=== PATIENT | female | born 1975 | race Caucasian/White ===

== ENCOUNTER 2017-04-01 23:27 | Emergency (ER) | payer MEDICAID ==
[2017-04-01] MEDS ORDERED: Diazepam TAB(*) 5 MG PO ONE (23:48)
[2017-04-01] MEDS ORDERED: Dexamethasone TAB* 4 MG PO ONE (23:49)
[2017-04-01] MEDS ORDERED: oxyCODONE/Acetamin 5/325 MG* TAB PO ONE (23:49)
[2017-04-01] MEDS ORDERED: Ketorolac INJ* 60 MG/2 ML VIAL IM ONE (23:49)
--- NOTE | 2017-04-02 00:48 | ED ---
Back Pain - HPI Summary HPI Summary: 41F presents with lower back pain. She has history of chronic back pain from DJD. She states she was lifting something today and felt a pull in her back and felt that her back moved. She states her pain is extreme and she took one ibuprofen. She is doing to see a pain management doctor next month for her back pain. She has numbness on right leg that is chronic. She denies any loss of bowel or bladder. She denies any trauma. She denies any saddle anaesthesia. She denies any pain down her legs. - History of Current Complaint Chief Complaint: EDBackInjuryPain Stated Complaint: BACK PAIN Time Seen by Provider: 04/01/17 23:39 Pain Intensity: 9 - Allergies/Home Medications Allergies/Adverse Reactions: Allergies Allergy/AdvReac Type Severity Reaction Status Date / Time No Known Allergies Allergy Verified 04/01/17 23:56 PMH/Surg Hx/FS Hx/Imm Hx Endocrine/Hematology History: Denies: Hx Anticoagulant Therapy Cardiovascular History: Reports: Hx Hypertension Infectious Disease History: No Infectious Disease History: Denies: Traveled Outside the [place] in Last 30 Days - Family History Known Family History: Positive: Hypertension - Social History Alcohol Use: Occasionally Substance Use Type: Reports: None Smoking Status (MU): Light Every Day Tobacco Smoker Review of Systems Negative: Fever Negative: Chest Pain Negative: Shortness Of Breath Positive: Myalgia - back pain All Other Systems Reviewed And Are Negative: Yes Physical Exam Triage Information Reviewed: Yes Vital Signs On Initial Exam: Initial Vitals Temp Pulse Resp BP Pulse Ox 98 F 73 16 173/92 98 04/01/17 23:34 04/01/17 23:34 04/01/17 23:34 04/01/17 23:34 04/01/17 23:34 Vital Signs Reviewed: Yes Appearance: Positive: Pain Distress Skin: Positive: Warm, Dry Head/Face: Positive: Normal Head/Face Inspection Eyes: Positive: Normal, Conjunctiva Clear Respiratory/Lung Sounds: Positive: Clear to Auscultation, Breath Sounds Present Cardiovascular: Positive: Normal, RRR Musculoskeletal: Positive: Limited @ - back, Other - tenderness across lower back, pos SLR right, good pulses Neurological: Positive: Sensory/Motor Intact Psychiatric: Positive: Normal Diagnostics - Vital Signs Vital Signs Temp Pulse Resp BP Pulse Ox 04/02/17 00:01 98 F 73 16 173/92 98 04/01/17 23:59 16 04/01/17 23:34 98 F 73 16 173/ 98 - Laboratory Lab Statement: Any lab studies that have been ordered have been reviewed, and results considered in the medical decision making process. - CT lumbar CT Interpretation: Positive (See Comments) - small disc bulge at L4-L5 and L5-S1 CT Interpretation Completed By: Radiologist Back Pain Course/Dx - Course Course Of Treatment: 41F presents with lower back pain. She has history of chronic back pain from DJD. She states she was lifting something today and felt a pull in her back and felt that her back moved. She states her pain is extreme and she took one ibuprofen. She is doing to see a pain management doctor next month for her back pain. She has numbness on right leg that is chronic. She denies any loss of bowel or bladder. She denies any trauma. She denies any saddle anaesthesia. She denies any pain down her legs. on exam pos SLR right, tenderness across back. discussed with patient and wants imaging. decided on doing CT. gave valium, toradol, steriod and perocet for pain and experienced some pain relief. will continue steriod and muscle relaxer and told to follow up with primary. patient understands and agrees with plan. - Diagnoses Differential Diagnosis/HQI/PQRI: Positive: Herniated Disc, Strain, Sprain Provider Diagnoses: Back pain Discharge - Discharge Plan Condition: Good Disposition: HOME Prescriptions: Cyclobenzaprine TAB* [Flexeril 10 MG TAB*] 10 mg PO TID PRN #9 tab PRN Reason: Pain Methylprednisolone [Medrol Dosepak 4 MG*] 4 mg PO .SEE DEBORA INSTRUCTION #1 packet Patient Education Materials: Back Pain (ED) Referrals: Non Staff,Doctor [Primary Care Provider] - Additional Instructions: Follow directions on package for Medrol pack Take muscle relaxers three times a day for 3 days Use ibuprofen or Tylenol for pain every 6 hours ice/heat area, move as much as possible Follow up with primary within 5 days Return to ED if develop any new or worsening symptoms
[2017-04-02 01:07] VITALS: BP 136/98
--- NOTE | 2017-04-02 07:41 | RAD ---
INDICATION: Low back pain status post lifting injury. COMPARISON: There are no prior studies available for comparison. TECHNIQUE: Contiguous axial sections were obtained beginning above the L1 vertebra and continuing through the L5-S1 disc space. Images were reconstructed in the sagittal and coronal planes. FINDINGS: There is a mild lumbar scoliosis convex toward the left side. The vertebra are otherwise in normal alignment. No fracture is seen. At the L4-L5 level there is a mild broad-based disc bulge. No significant spinal canal narrowing is present. There is mild bilateral neural foraminal narrowing. At the L5-S1 level there is a mild broad-based disc bulge. No significant spinal canal narrowing is present. Neural foramen appear patent on both sides. The remaining intervertebral discs appear to be within normal limits. IMPRESSION: MILD DEGENERATIVE DISC DISEASE AT THE L4-L5 AND L5-S1 LEVELS.
== END 2017-04-02 01:08 | disposition home or self-care (01) ==
LOC: MERGE 23:27 → ED 23:27
DX: M54.5 Low back pain (principal); I10 Essential (primary) hypertension; Z72.0 Tobacco use
CPT/HCPCS: 72131; 96372; 99282; A9270-GY; J1885

== ENCOUNTER 2017-04-12 00:39 | Emergency (ER) | payer MEDICAID ==
[2017-04-12] MEDS ORDERED: NS 0.9% 1000 ML* 1,000 ML IV ONE (01:15)
[2017-04-12] MEDS ORDERED: Ondansetron INJ* 2 MG/ML VIAL IV ONE (01:24)
[2017-04-12] MEDS ORDERED: Morphine INJ* 4 MG/ML 1 ML SYRINGE IV ONE ×2 (01:24→03:25)
[2017-04-12 02:24] LABS: Hematocrit 47 % (35-47); Hemoglobin 15.9 g/dl (12.0-16.0); Mean Corpuscular HGB Conc 34 g/dl (31-36); Mean Corpuscular Hemoglobin 33 pg (27-31); Mean Corpuscular Volume 96 fL (80-97); Mean Platelet Volume 9 um3 (7.4-10.4); Red Blood Count 4.87 10^6/ul (4.0-5.4); Red Cell Distribution Width 14 % (10.5-15); White Blood Count 9.4 10^3/ul (3.5-10.8)
[2017-04-12 02:25] LABS: Add Diff/Slide Review? Slide Review Added; Comments Flag Yes
[2017-04-12 02:32] LABS: Albumin 4.2 g/dL (3.2-5.2); C Reactive Protein 3.23 mg/L (< 5.00); Calcium 9.3 mg/dL (8.6-10.3); EGFR African American 136.4 (>60); EGFR Non-African American 106.1 (>60); Globulin 2.8 g/dL (2-4); Potassium 3.9 mmol/L (3.5-5.0); Total Bilirubin 0.9 mg/dL (0.2-1.0)
[2017-04-12] MEDS ORDERED: Iohexol 300* (CONTRAST) 10 ML SDV IV ONE (02:37)
[2017-04-12 03:29] LABS: Urine Bacteria 1+ (Absent); Urine Bilirubin Negative (Negative); Urine Glucose Negative (Negative); Urine Nitrite Negative (Negative)
--- NOTE | 2017-04-12 04:46 | ED ---
I, Oh,Soniyah, scribed for Erick Manzano MD on 04/12/17 at 0124 . Abdominal Pain/Female - HPI Summary HPI Summary: This 41 y/o female presents to ED for gradually worsening right sided abd pain since yesterday. Pain radiate to right lower back. Pain is worse since Pt consumed ham and mac and cheese for dinner last evening. Positive n/v after consumption. She decided to visit ED when she had trouble falling asleep due to pain. PMHx includes cholecystectomy. Appendix is still intact. Plan of care involving CT imaging studies is discussed, and pt is agreeable. - History of Current Complaint Chief Complaint: EDAbdPain Stated Complaint: ABD PAIN Time Seen by Provider: 04/12/17 01:18 Hx Obtained From: Patient, Medical Records Onset/Duration: Still Present Timing: Constant Pain Intensity: 9 Pain Scale Used: 0-10 Numeric Location: Discrete At: RUQ, Discrete At: RLQ Radiates: Yes Radiates to: Back - right lower back Character: Dull Aggravating Factor(s): Nothing Alleviating Factor(s): Nothing Associated Signs and Symptoms: Positive: Nausea, Vomiting. Negative: Fever Allergies/Adverse Reactions: Allergies Allergy/AdvReac Type Severity Reaction Status Date / Time No Known Allergies Allergy Verified 04/01/17 23:56 PMH/Surg Hx/FS Hx/Imm Hx Endocrine/Hematology History: Denies: Hx Anticoagulant Therapy Cardiovascular History: Reports: Hx Hypertension Infectious Disease History: No Infectious Disease History: Denies: Traveled Outside the [place] in Last 30 Days - Family History Known Family History: Positive: Hypertension - Social History Alcohol Use: Occasionally Hx Substance Use: No Substance Use Type: Reports: None Hx Tobacco Use: Yes Smoking Status (MU): Light Every Day Tobacco Smoker Review of Systems Negative: Fever Positive: Abdominal Pain, Vomiting, Nausea All Other Systems Reviewed And Are Negative: Yes Physical Exam Triage Information Reviewed: Yes Vital Signs On Initial Exam: Initial Vitals Temp Pulse Resp BP Pulse Ox 98.8 F 79 16 143/96 98 04/12/17 00:43 04/12/17 00:43 04/12/17 00:43 04/12/17 00:43 04/12/17 00:43 Vital Signs Reviewed: Yes Appearance: Positive: Well-Appearing, Pain Distress - mild discomfort Skin: Positive: Warm Head/Face: Positive: Normal Head/Face Inspection Eyes: Positive: LAURA ENT: Positive: Hearing grossly normal Neck: Positive: Supple Respiratory/Lung Sounds: Positive: Clear to Auscultation, Breath Sounds Present Cardiovascular: Positive: RRR Abdomen Description: Positive: Soft, Other: - miold rlq tenderness. Negative: Distended, Guarding Bowel Sounds: Positive: Present Musculoskeletal: Positive: Strength/ROM Intact Neurological: Positive: Alert, Oriented to Person Place, Time Diagnostics - Vital Signs Vital Signs Temp Pulse Resp BP Pulse Ox 04/12/17 00:43 98.8 F 79 16 143/96 98 - Laboratory Lab Results: Lab Results 04/12/17 04/12/17 04/12/17 Range/Units 02:06 02:06 02:06 WBC 9.4 (3.5-10.8) 10^3/ul RBC 4.87 (4.0-5.4) 10^6/ul Hgb 15.9 (12.0-16.0) g/dl Hct 47 (35-47) % MCV 96 (80-97) fL MCH 33 H (27-31) pg MCHC 34 (31-36) g/dl RDW 14 (10.5-15) % Plt Count 256 (150-450) 10^3/ul MPV 9 (7.4-10.4) um3 Neut % (Auto) 68.9 (38-83) % Lymph % (Auto) 17.7 L (25-47) % [place] % (Auto) 6.2 (1-9) % Eos % (Auto) 1.5 (0-6) % Baso % (Auto) 5.7 H (0-2) % Absolute Neuts (auto) 6.5 (1.5-7.7) 10^3/ul Absolute Lymphs (auto) 1.7 (1.0-4.8) 10^3/ul Absolute Monos (auto) 0.6 (0-0.8) 10^3/ul Absolute Eos (auto) 0.1 (0-0.6) 10^3/ul Absolute Basos (auto) 0.5 H (0-0.2) 10^3/ul Absolute Nucleated RBC 0.01 10^3/ul Nucleated RBC % 0.1 Sodium 137 (133-145) mmol/L Potassium 3.9 (3.5-5.0) mmol/L Chloride 103 (101-111) mmol/L Carbon Dioxide 27 (22-32) mmol/L Anion Gap 7 (2-11) mmol/L BUN 13 (6-24) mg/dL Creatinine 0.62 (0.51-0.95) mg/dL Est GFR ( Amer) 136.4 (>60) Est GFR (Non-Af Amer) 106.1 (>60) BUN/Creatinine Ratio 21.0 H (8-20) Glucose 91 (70-100) mg/dL Lactic Acid 0.8 (0.5-2.0) mmol/L Calcium 9.3 (8.6-10.3) mg/dL Total Bilirubin 0.90 (0.2-1.0) mg/dL AST 19 (13-39) U/L ALT 23 (7-52) U/L Alkaline Phosphatase 33 L (34-104) U/L C-Reactive Protein 3.23 (< 5.00) mg/L Total Protein 7.0 (6.4-8.9) g/dL Albumin 4.2 (3.2-5.2) g/dL Globulin 2.8 (2-4) g/dL Albumin/Globulin Ratio 1.5 (1-3) Lipase 30 (11.0-82.0) U/L Beta HCG, Quant 0.74 mIU/mL Urine Color Urine Appearance Urine pH (5-9) Ur Specific [place] (1.010-1.030) Urine Protein (Negative) Urine Ketones (Negative) Urine Blood (Negative) Urine Nitrate (Negative) Urine Bilirubin (Negative) Urine Urobilinogen (Negative) Ur Leukocyte Esterase (Negative) Urine WBC (Auto) (Absent) Urine RBC (Auto) (Absent) Ur Squamous Epith Cells (Absent) Calcium Oxalate Crystal (Absent) Urine Bacteria (Absent) Urine Glucose (Negative) 04/12/17 Range/Units 03:08 WBC (3.5-10.8) 10^3/ul RBC (4.0-5.4) 10^6/ul Hgb (12.0-16.0) g/dl Hct (35-47) % MCV (80-97) fL MCH (27-31) pg MCHC (31-36) g/dl RDW (10.5-15) % Plt Count (150-450) 10^3/ul MPV (7.4-10.4) um3 Neut % (Auto) (38-83) % Lymph % (Auto) (25-47) % [place] % (Auto) (1-9) % Eos % (Auto) (0-6) % Baso % (Auto) (0-2) % Absolute Neuts (auto) (1.5-7.7) 10^3/ul Absolute Lymphs (auto) (1.0-4.8) 10^3/ul Absolute Monos (auto) (0-0.8) 10^3/ul Absolute Eos (auto) (0-0.6) 10^3/ul Absolute Basos (auto) (0-0.2) 10^3/ul Absolute Nucleated RBC 10^3/ul Nucleated RBC % Sodium (133-145) mmol/L Potassium (3.5-5.0) mmol/L Chloride (101-111) mmol/L Carbon Dioxide (22-32) mmol/L Anion Gap (2-11) mmol/L BUN (6-24) mg/dL Creatinine (0.51-0.95) mg/dL Est GFR ( Amer) (>60) Est GFR (Non-Af Amer) (>60) BUN/Creatinine Ratio (8-20) Glucose (70-100) mg/dL Lactic Acid (0.5-2.0) mmol/L Calcium (8.6-10.3) mg/dL Total Bilirubin (0.2-1.0) mg/dL AST (13-39) U/L ALT (7-52) U/L Alkaline Phosphatase (34-104) U/L C-Reactive Protein (< 5.00) mg/L Total Protein (6.4-8.9) g/dL Albumin (3.2-5.2) g/dL Globulin (2-4) g/dL Albumin/Globulin Ratio (1-3) Lipase (11.0-82.0) U/L Beta HCG, Quant mIU/mL Urine Color Yellow Urine Appearance Cloudy Urine pH 5.0 (5-9) Ur Specific [place] 1.024 (1.010-1.030) Urine Protein Negative (Negative) Urine Ketones Negative (Negative) Urine Blood 1+ H (Negative) Urine Nitrate Negative (Negative) Urine Bilirubin Negative (Negative) Urine Urobilinogen Negative (Negative) Ur Leukocyte Esterase Trace H (Negative) Urine WBC (Auto) 1+(6-10/hpf) H (Absent) Urine RBC (Auto) 2+(6-10/hpf) H (Absent) Ur Squamous Epith Cells Present H (Absent) Calcium Oxalate Crystal Present H (Absent) Urine Bacteria 1+ H (Absent) Urine Glucose Negative (Negative) Result Diagrams: 04/12/17 02:06 04/12/17 02:06 Lab Statement: Any lab studies that have been ordered have been reviewed, and results considered in the medical decision making process. - CT Ab/P CT Interpretation: Positive (See Comments) - Mildly fatty liver. 2.6 cm right ovarian cyst without free fluid. 10 mm left adrenal nodule may be followed up with MRI. CT Interpretation Completed By: Radiologist Re-Evaluation - Re-Evaluation First Eval Change: Improved - pt pain free, results d/w pt Abdominal Pain Fem Course/Dx - Diagnoses Provider Diagnoses: Ovarian cyst, Abdominal pain Discharge - Discharge Plan Condition: Improved Disposition: HOME Patient Education Materials: Ovarian Cyst (ED), Abdominal Pain (ED) Referrals: [facility] [Outside] - 2 Days The documentation as recorded by the Estuarod jacome Soohyun accurately reflects the service I personally performed and the decisions made by , Erick Manzano MD.
[2017-04-12 05:44] VITALS: BP 108/52
--- NOTE | 2017-04-12 07:43 | RAD ---
CLINICAL HISTORY: Right lower quadrant pain. Relevant surgical history includes cholecystectomy. COMPARISON: None TECHNIQUE: Contrast enhanced CT examination of the abdomen and pelvis from the lung bases through the initial tuberosities. The patient received 119 mL Omnipaque 300 intravenously prior to imaging.The patient received oral contrast as well prior to imaging. FINDINGS: VISUALIZED LUNG BASES: The visualized lung bases are grossly clear. There is no pleural effusion. ABDOMEN AND PELVIS: The liver is homogenously hypodense relative to the spleen without focal suspicious mass or surface irregularity. The spleen, pancreas and left adrenal gland are grossly normal in appearance. At the right adrenal gland there is a 1.7 x 0.9 cm soft tissue density nodule right disease image 44). The gallbladder is surgically absent. The kidneys are normal in appearance without focal mass, calcification or signs of hydronephrosis. The oral contrast has progressed as far as the base of the cecum. The small and large bowel are not distended. The patient's normal appendix is identified in the right lower quadrant measuring just under 5 mm in diameter (image 127). There is no gross retroperitoneal or mesenteric lymphadenopathy. The pelvic viscera is normal in appearance. At the right adnexa there is a 2.9 cm fluid density structure most consistent with a follicle and a woman of this age. The abdominal aorta and iliac arteries are normal in course and diameter. There are no sinister bone lesions. IMPRESSION: 1. No acute inflammatory changes or signs of obstruction of the gastrointestinal tract. 2. At the right adnexa there is a 2.9 cm fluid density structure most consistent with a follicle in a woman of this age. 3. Left adrenal soft tissue nodule measuring 9 x 17 mm. This is incompletely characterized on this CT examination and can be further characterized either with contrast-enhanced MRI of the abdomen were four-phase CT of the abdomen according to the adrenal gland protocol. 4. Hepatic steatosis.
== END 2017-04-12 05:52 | disposition home or self-care (01) ==
LOC: ED 00:39
DX: N83.201 Unspecified ovarian cyst, right side (principal); R10.9 Unspecified abdominal pain; R11.2 Nausea with vomiting, unspecified; F17.210 Nicotine dependence, cigarettes, uncomplicated
CPT/HCPCS: 36415; 74177; 80053; 81003; 81015; 83605; 83690; 84702; 85025; 86140; 87077; 87086; 87186; 96374; 96375; 99284; J2270; J2405; Q9967

== ENCOUNTER 2017-05-16 19:53 | Observation (INO) | payer MEDICAID ==
[2017-05-16] MEDS ORDERED: Aspirin Low Dose CHEW TAB* 81 MG PO ONE (23:23)
[2017-05-16] MEDS ORDERED: Nitroglycerin 2% OINT* 1 GM PAK TOPICAL ONE (23:24)
[2017-05-16 23:59] LABS: Hematocrit 49 % (35-47); Hemoglobin 16.8 g/dl (12.0-16.0); Mean Corpuscular HGB Conc 34 g/dl (31-36); Mean Corpuscular Hemoglobin 32 pg (27-31); Mean Corpuscular Volume 94 fL (80-97); Mean Platelet Volume 9 um3 (7.4-10.4); Red Blood Count 5.22 10^6/ul (4.0-5.4); Red Cell Distribution Width 14 % (10.5-15); White Blood Count 9.8 10^3/ul (3.5-10.8)
[2017-05-17 00:12] LABS: Albumin 4.4 g/dL (3.2-5.2); BUN/Creatinine Ratio 17.5 (8-20); Calcium 9.3 mg/dL (8.6-10.3); EGFR African American 133.3 (>60); EGFR Non-African American 103.6 (>60); Potassium 3.7 mmol/L (3.5-5.0); Total Bilirubin 1.1 mg/dL (0.2-1.0); Total Protein 7.4 g/dL (6.4-8.9)
[2017-05-17] MEDS ORDERED: Acetaminophen TAB* 325 MG PO ONE (02:00)
[2017-05-17] MEDS ORDERED: Albuterol 2.5 MG/3 ML NEB.SOL* (0.083%) INH PRN (04:28)
[2017-05-17] MEDS ORDERED: Nicotine Inhaler* 10 MG AMP INH PRN (04:36)
--- NOTE | 2017-05-17 04:38 | ED ---
Dm Young Rebecca, scribed for Bebeto Wilduel on 05/16/17 at 2313 . HPI Chest Pain - HPI Summary HPI Summary: Pt is a 42 y/o F who presents to ED c/o left anterior CP. Pain began yesterday and has been constant since onset, waxing and waning in intensity and worsening today. Pain is currently moderate, ranked 7/10 and is aggravated by deep breaths , movement and palpation, alleviated by nothing. Unchanged by Ibuprofen and Naproxen. Additionally c/o slight dizziness and nonproductive cough. Denies N/V , edema and abdominal pain. Is not on oral contraceptives. SHx current smoker. FHx CAD (both parents). Last stress test was many years ago. - History of Current Complaint Chief Complaint: EDChestPainROMI Time Seen by Provider: 05/16/17 22:52 Hx Obtained From: Patient Onset/Duration: Started Days Ago - Yesterday, Still Present, Worse Since - Today Current Severity: Moderate Pain Intensity: 7 Pain Scale Used: 0-10 Numeric Chest Pain Location: Left Anterior Aggravating Factor(s): Movement, Deep Breaths, Other: - Palpation Alleviating Factor(s): Nothing Associated Signs and Symptoms: Positive: Dizziness - slight, Nonproductive Cough. Negative: Nausea, Abdominal Pain, Vomiting, Edema - Allergy/Home Medications Allergies/Adverse Reactions: Allergies Allergy/AdvReac Type Severity Reaction Status Date / Time No Known Allergies Allergy Verified 04/01/17 23:56 PMH/Surg Hx/FS Hx/Imm Hx Endocrine/Hematology History: Denies: Hx Anticoagulant Therapy, Hx Diabetes Cardiovascular History: Reports: Hx Hypertension History: Denies: Hx Renal Disease - Surgical History Surgery Procedure, Year, and Place: CHOLECYSTECTOMY 2014 Infectious Disease History: No Infectious Disease History: Denies: Traveled Outside the [place] in Last 30 Days - Family History Known Family History: Positive: Hypertension - Social History Alcohol Use: None Hx Substance Use: No Substance Use Type: Reports: None Hx Tobacco Use: Yes Smoking Status (MU): Light Every Day Tobacco Smoker Review of Systems Positive: Chest Pain Positive: Cough - nonproductive Negative: Abdominal Pain, Vomiting, Nausea Negative: Edema Neurological: Other - Dizziness All Other Systems Reviewed And Are Negative: Yes Physical Exam - Summary Physical Exam Summary: Appearance: Well appearing, no pain distress Skin: warm, dry, reflects adequate perfusion Head/face: normal Eyes: EOMI, LAURA ENT: normal Neck: supple, nontender Respiratory: CTA, breath sounds present Cardiovascular: RRR, pulses symmetrical, tenderness over the left chest Abdomen: nontender, soft Bowel: present Musculoskeletal: normal, strength/ROM intact Neuro: normal, sensory motor intact, A&Ox3 Triage Information Reviewed: Yes Vital Signs On Initial Exam: Initial Vitals Temp Pulse Resp BP Pulse Ox 98.3 F 82 20 141/94 99 05/16/17 19:55 05/16/17 19:55 05/16/17 19:55 05/16/17 19:55 05/16/17 19:55 Vital Signs Reviewed: Yes - [place] Coma Scale Coma Scale Total: 15 Diagnostics - Vital Signs Vital Signs Temp Pulse Resp BP Pulse Ox 05/16/17 22:30 62 21 127/81 97 05/16/17 22:00 70 13 98 05/16/17 21:53 99.1 F 69 14 152/99 98 05/16/17 21:39 95 96 05/16/17 21:38 152/99 05/16/17 21:15 98.6 F 78 20 148/89 98 05/16/17 19:55 98.3 F 82 20 141/94 99 - Laboratory Result Diagrams: 05/16/17 23:40 05/16/17 23:40 Lab Statement: Any lab studies that have been ordered have been reviewed, and results considered in the medical decision making process. - Radiology CXR Xray Interpretation: No Acute Changes Radiology Interpretation Completed By: ED Physician - EKG 2005 Cardiac Rate: NL - 75 bpm EKG Rhythm: Sinus Rhythm EKG Interpretation: No acute changes Chest Pain Course/Dx - Course Assessment/Plan: Pt is a 42 y/o F who presents to ED c/o left anterior CP. Pain began yesterday and has been constant since onset, waxing and waning in intensity and worsening today. Pain is currently moderate, ranked 7/10 and is aggravated by deep breaths, movement and palpation, alleviated by nothing. Unchanged by Ibuprofen and Naproxen. Additionally c/o slight dizziness and nonproductive cough. Denies N/V, edema and abdominal pain. Is not on oral contraceptives. SHx current smoker. FHx CAD (both parents). Last stress test was many years ago. CXR is negative, as read by ED physician. EKG is sinus rhythm with no acute changes. In the ED course, pt was given Tylenol, NTG and ASA. Blood workw as done. Both troponins are 0.00. Discussed care of pt with Dr. Pichardo who will evaluate the pt and upon evaluation has decided to admit the pt. She will be admitted with Dx of CP, r/o ACS. She understands and agrees. Elevated BP noted. - Diagnoses Provider Diagnoses: chest pain, rule out ACS - Provider Notifications Discussed Care Of Patient With: Alex Gamboa Time Discussed With Above Provider: 03:55 Instructed by Provider To: Other - Will evaluate the pt in the ED. Upon evaluation, Dr. Gamboa has decided to admit the pt. Discharge - Discharge Plan Condition: Stable Disposition: ADMITTED TO [facility] documentation as recorded by the Dm jacome Rebecca accurately reflects the service I personally performed and the decisions made by Junito stanley Emmanuel.
[2017-05-17] MEDS ORDERED: Heparin VIAL(*) 5000 UNITS/ML VIAL (FIVE THOUSAND) SUBCUT SCH (06:00)
--- NOTE | 2017-05-17 06:30 | HP ---
CC: Dr. Sánchez * ADMISSION HISTORY AND PHYSICAL: DATE OF ADMISSION: 05/17/17 PRIMARY CARE PROVIDER: Dr. Sánchez. HEALTH CARE PROXY: Her . CODE STATUS: Full. SOURCE OF INFORMATION: History obtained from interview of the patient. RELIABILITY: Good. CHIEF COMPLAINT: Chest pain. HISTORY OF PRESENT ILLNESS: This 42-year-old with past medical history of obesity, active tobacco abuse, hypertension per chart review though patient denies and early family history of heart disease. Had been in her usual state of health until a day prior to admission developed chest tightness that lasted about an hour, described as nonradiating in her chest with a "internal tenderness" associated with dizziness. On the day of admission, felt the pain was worse, described as more persistent, has been coming on and off lasting for minutes to hours. She could not state whether her pain was associated with exertion and no relieving factors. She tried to think about it. She notes her recent cough has also been intermittent, denies being associated with pain. The day of admission took an antacid thinking that the pain may be related to indigestion without relief and she also tried a Motrin without relief. She proceeded to emergency room where reportedly she received sublingual nitroglycerin with improvement in her pain. 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 At home she has not stairs and otherwise does not walk up and down stairs, not very active, mostly limited by her lifestyle but not arthralgias or other medical conditions. When seen by this author, the patient was chest pain free, interactive, sleepy at 4:30 in the morning in no distress. PAST MEDICAL HISTORY: Includes tobacco abuse, asthma, degenerative disk disease in her lower back, history of tubal ligation, right knee surgery, left elbow surgery, left eye surgery, and a cholecystectomy 2 years prior. MEDICATIONS: 1. Naproxen p.r.n. 2. Albuterol HFA p.r.n. ALLERGIES: No known drug allergies. FAMILY HISTORY: Mother from an VA at age 44, father had an VA at 57, maternal grandfather and maternal grandmother also had heart disease per report. SOCIAL HISTORY: Smokes half a pack a day for 25 years. No alcohol. 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 . REVIEW OF SYSTEMS: As per HPI, otherwise all other systems negative. PHYSICAL EXAMINATION GENERAL: Lying 20 degrees in bed, interactive, pleasant, in no apparent. distress. VITAL SIGNS: In the emergency room 133/90, respiratory rate is 13, heart rate 64, 99% on room air, and T-Max 99.1. HEENT: Oropharynx is clear, has moist mucous membranes. NECK: Mildly elevated JVD at 30 degrees. No cervical or supraclavicular lymphadenopathy. LUNGS: Clear to auscultation. HEART: She has regular, rate, and rhythm. No murmurs, rubs, or gallops. ABDOMEN: Soft, nontender, and nondistended. EXTREMITIES: Warm and well perfused without clubbing, cyanosis, or edema. She is alert and oriented x3; her Cranial nerves II through XII are intact. She has no apparent anxiety, agitation, or depression. PERTINENT LABS: Troponin I 0.00 on consecutive checks. BNP 189, white blood cell count 9.8. Hemoglobin 16.8. Data reviewed, EKG normal sinus rhythm, ventricular rate of 75, borderline left axis, normal R-wave progression and no ST or T-wave changes. Chest x-ray: No active cardiopulmonary disease. ASSESSMENT AND PLAN: This is a 42-year-old female presenting to the hospital with chest tightness over 2 days. Strong family history of coronary artery disease and risk factors including obesity and active tobacco abuse. Chest pain. Rule out acute coronary syndrome. Third troponin at 6 a.m. in the morning. Chest fasting lipids in the morning. No evidence of diabetes based on fasting glucose. Received aspirin in the emergency room. Continue aspirin 81 mg in the morning. I have ordered an exercise stress test and nuclear imaging tomorrow. The patient does not think she will limited in performing the exercise portion of the test. Asthma. Continue home albuterol. DVT prophylaxis, heparin subcu. [id number]/[facility] #: [id number] [facility]
--- NOTE | 2017-05-17 07:17 | RAD ---
INDICATION: Chest pain COMPARISON: None TECHNIQUE: An AP portable view obtained at 2330 hours is submitted. FINDINGS: Bones/Soft Tissues: There are no acute bony findings. Cardiomediastinal: The cardiomediastinal silhouette is normal. Lungs: There are no infiltrates. Pleura: There are no pleural effusions. Other: None IMPRESSION: NO ACTIVE DISEASE.
[2017-05-17 07:34] LABS: HDL Cholesterol 31.2 mg/dL
[2017-05-17] MEDS ORDERED: Aspirin EC Low Dose* 81 MG TAB.EC PO SCH (09:00)
[2017-05-17] MEDS ORDERED: Aminophylline IV* 25 MG/ML 10 ML VIAL ONE (11:37)
[2017-05-17] MEDS ORDERED: Regadenoson* 0.4 MG/5 ML SYRINGE ONE ×2 (11:37)
--- NOTE | 2017-05-17 13:32 | RAD ---
Edited for charges. Indication: Chest pain. Myocardial perfusion scan was performed utilizing 1 day protocol. Rest myocardial perfusion was performed after intravenous injection of 10.3 mCi of technetium 99 and tetrofosmin. Pharmacological stress was applied and stress myocardial perfusion was performed after intravenous injection of 25.9 mCi of technetium 99m tetrofosmin. There is homogeneous distribution throughout the left ventricle. There is focal area of photopenia which appears to reverse in the apex of the heart. This may represent a small reversible change. The ejection fraction is 61% at stress. Evaluation of wall motion demonstrates no focal wall motion abnormality. IMPRESSION: There is a small area of reversible change near the apex. Normal ejection fraction. ASSESSMENT: Low risk Based on imaging criteria from ACC/AHA 2002 Guideline Update for the Management of Patients With Chronic Stable Angina Table 23. Noninvasive Risk Stratification. MTDD
[2017-05-17] MEDS ORDERED: Omeprazole CAP* 20 MG PO ONE (13:46)
[2017-05-17 15:28] VITALS: BP 121/70
--- NOTE | 2017-05-18 05:24 | DS ---
CC: PCP, Dr. Sánchez * DISCHARGE SUMMARY DATE OF ADMISSION: 05/17/17 DATE OF DISCHARGE: 05/18/17 ADMITTING PHYSICIAN: Dr. Gamboa ATTENDING PHYSICAIN: Dr. Lopez CHIEF COMPLAINT: burning chest pain PRIMARY DIAGNOSIS: atypical chest pain; ACS ruled out; possible GERD HISTORY OF PRESENT ILLNESS AND HOSPITAL COURSE: Isabel Bradshaw is 42 year old female PMH asthma, DDD, tobacco abuse presented with two days of burning chest sensation underneath her left breast and nonexertional shortness of breath that was unrelieved with home NSAIDs. She presented to the emergency room and was admitted to observation unit status for ACS rule out. Troponin's were negative x3. The patient underwent attempted exercise stress test in morning but was unable to achieve target heart rate and was suffering from shortness of breath thought to be secondary to asthma. She then underwent a Lexiscan nuclear stress test but had adverse reaction with flushing, nausea, shortness of breath, anxiety. The stress test was read as low risk with a small area of reversible change near the apex. Patient was discharged home to follow up with primary care provider. She was also given prescription for Prilosec as trial for potential GERD. Of note, she attested to substantial difficulty sleeping on anything but 4 pillows, that she snore all night, and frequently "stops breathing" overnight. She was advised to follow up with a polymsomnographer/sleep study to test for obstructive sleep apnea. DISCHARGE MEDICATIONS: 1. Home Motrin. 2. Albuterol inhalers p.r.n. DISPOSITION: Home. DIET: Regular, unchanged. [id number]/[facility] #: [id number] [facility]
== END 2017-05-17 15:57 | disposition home or self-care (01) ==
LOC: ED 19:53 → MEDTELE 05-17 04:28
PROVIDERS: ADMIT Internal Medicine; ATTEND Internal Medicine
DX: R07.89 Other chest pain (principal); J45.909 Unspecified asthma, uncomplicated; M51.36 Other intervertebral disc degeneration, lumbar region; F17.210 Nicotine dependence, cigarettes, uncomplicated; I10 Essential (primary) hypertension; R42 Dizziness and giddiness; R06.02 Shortness of breath; R00.2 Palpitations; Z79.899 Other long term (current) drug therapy
CPT/HCPCS: 36415; 71010; 78452; 80053; 80061; 83880; 84484; 85025; 85379; 85610; 85730; 93005; 93017; 99285; A9270-GY; A9502; G0378; J0280; J1644; J2785

== ENCOUNTER 2017-06-10 13:41 | Emergency (ER) | payer SELFPAY ==
[2017-06-10 13:56] VITALS: BP 144/97
--- NOTE | 2017-06-10 14:40 | RAD ---
HISTORY: Right elbow pain COMPARISONS: None VIEWS: 2, Frontal and lateral views of the right elbow FINDINGS: BONE DENSITY: Normal. BONES: There is no displaced fracture. JOINTS: There is no arthropathy. There is no posterior supracondylar fat pad to suggest a joint effusion. ALIGNMENT: There is no dislocation. SOFT TISSUES: Unremarkable. OTHER FINDINGS: None. IMPRESSION: NO ACUTE OSSEOUS INJURY. IF SYMPTOMS PERSIST, RECOMMEND REPEAT IMAGING.
--- NOTE | 2017-06-27 19:09 | ED ---
Upper Extremity Pain - HPI Summary HPI Summary: Patient presents to the ED with CC right elbow pain after injuring it a few days ago. Denies bruising or other discoloration. Impact was minimal. Denies numbness or tingling into the hand. Denies temperature changes. She has never injured the arm before. Requesting note for work. - History of Current Complaint Chief Complaint: EDExtremityUpper Stated Complaint: RT ELBOW PAIN Time Seen by Provider: 06/10/17 14:07 Hx Obtained From: Patient Mechanism Of Injury: Blunt Trauma Onset/Duration: Started Days Ago Timing: Constant Severity Initially: Mild Severity Currently: Mild Pain Location: Elbow Character: Aching Aggravating Factor(s): Movement, Lifting, Flexion, Extension, Internal/External Rotation Alleviating Factor(s): Nothing Associated Signs & Symptoms: Negative: Swelling, Numbness/Tingling, Neck Pain, Nausea - Risk Factors Non-Orthopedic Risk Factor: Negative DVT Risk Factors: Negative Septic Arthritis Risk Factor: Negative Compartment Syndrome Risk Factors: Pain - Allergies/Home Medications Allergies/Adverse Reactions: Allergies Allergy/AdvReac Type Severity Reaction Status Date / Time No Known Allergies Allergy Verified 06/10/17 13:56 PMH/Surg Hx/FS Hx/Imm Hx Previously Healthy: Yes Endocrine/Hematology History: Denies: Hx Anticoagulant Therapy, Hx Diabetes Cardiovascular History: Reports: Hx Hypertension Respiratory History: Reports: Hx Asthma History: Denies: Hx Renal Disease Musculoskeletal History: Reports: Hx Back Problems - degenerative disc disease Denies: Hx Arthritis Sensory History: Reports: Hx Contacts or Glasses, Hx Vision Problem Denies: Hx Hearing Aid Opthamlomology History: Reports: Hx Contacts or Glasses, Hx Vision Problem - Surgical History Surgery Procedure, Year, and Place: CHOLECYSTECTOMY 2015 - Immunization History Hx Pertussis Vaccination: No Immunizations Up to Date: Unable to Obtain/Confirm Infectious Disease History: No Infectious Disease History: Denies: Traveled Outside the [place] in Last 30 Days - Family History Known Family History: Positive: Hypertension - Social History Occupation: Employed Full-time Lives: With Family Alcohol Use: None Hx Substance Use: No Substance Use Type: Reports: None Hx Tobacco Use: Yes Smoking Status (MU): Heavy Every Day Tobacco Smoker Type: Cigarettes Have You Smoked in the Last Year: Yes Review of Systems Constitutional: Negative Negative: Fever, Chills, Fatigue Eyes: Negative Cardiovascular: Negative Negative: Chest Pain Respiratory: Negative Negative: Shortness Of Breath, Cough Gastrointestinal: Negative Negative: Abdominal Pain, Vomiting Genitourinary: Negative Positive: no symptoms reported, see HPI Positive: Arthralgia - right elbow pain Neurological: Negative Psychological: Normal All Other Systems Reviewed And Are Negative: Yes Physical Exam Triage Information Reviewed: Yes Vital Signs On Initial Exam: Initial Vitals Temp Pulse Resp BP Pulse Ox 98.2 F 84 14 144/97 99 06/10/17 13:48 06/10/17 13:48 06/10/17 13:48 06/10/17 13:48 06/10/17 13:48 Vital Signs Reviewed: Yes Appearance: Positive: Well-Appearing, Well-Nourished Skin: Positive: Warm, Skin Color Reflects Adequate Perfusion Head/Face: Positive: Normal Head/Face Inspection, Temporal Artery Tenderness Eyes: Positive: EOMI, LAURA, Conjunctiva Clear Neck: Positive: Supple, No Lymphadenopathy Respiratory/Lung Sounds: Positive: Clear to Auscultation, Breath Sounds Present Cardiovascular: Positive: RRR, Pulses are Symmetrical in both Upper and Lower Extremities Musculoskeletal: Positive: Normal, Strength/ROM Intact Neurological: Positive: Sensory/Motor Intact, Speech Normal Psychiatric: Positive: Normal, Affect/Mood Appropriate AVPU Assessment: Alert Diagnostics - Vital Signs Vital Signs Temp Pulse Resp BP Pulse Ox 06/10/17 13:48 98.2 F 84 14 144/97 99 - Laboratory Lab Statement: Any lab studies that have been ordered have been reviewed, and results considered in the medical decision making process. Course/Dx - Course Course Of Treatment: Elbow xray negative. ROM ok. Patient notes to pain on palpation. Encouraged ibuprofen and wrapped the elbow. Note given for work. - Diagnoses Provider Diagnoses: Elbow contusion Discharge - Discharge Plan Condition: Stable Disposition: HOME Patient Education Materials: Elbow Sprain (ED) Forms: *Work Release Referrals: Paulino Sánchez MD [Primary Care Provider] - Additional Instructions: Ibuprofen 600mg three times daily Continue with josue wrap Ice and elevation You may also use heat intermittently Continue to try to move the elbow to allow for early mobilization.
== END 2017-06-10 15:39 | disposition home or self-care (01) ==
LOC: ED 13:41
DX: S50.01XA Contusion of right elbow, initial encounter (principal); I10 Essential (primary) hypertension; J45.909 Unspecified asthma, uncomplicated; F17.210 Nicotine dependence, cigarettes, uncomplicated; X58.XXXA Exposure to other specified factors, initial encounter; Y92.9 Unspecified place or not applicable
CPT/HCPCS: 99281